=== PATIENT | female | born 1970 | race Asian ===

== ENCOUNTER 2018-03-05 07:45 | Emergency (ER) | payer OTHER ==
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
[2018-03-05 10:03] VITALS: BP 120/70
--- NOTE | 2018-03-05 10:20 | RADIOLOGY REPORT (SQ) ---
EXAM DESCRIPTION: VENOUS UNILATERAL LOWER COMPLETED DATE/TIME: 03/05/2018 10:08 am REASON FOR STUDY: Left lower extremity swelling and pain COMPARISON: None. TECHNIQUE: Dynamic and static dorman scale and color images acquired of the left leg venous system. Se lected spectral images acquired with additional compression and augmentation maneuvers. The contralat eral common femoral vein and saphenofemoral junction were also imaged. Images stored on PACS. LIMITATIONS: None. FINDINGS: LEFT COMMON FEMORAL: Normal phasicity, compression and augmentation. No visualized echogenic material on g ray scale. No defects on color images. FEMORAL: Normal compression and augmentation. No visualized echogenic material on dorman scale. No defe cts on color images. POPLITEAL: Normal compression, augmentation. No visualized echogenic material on dorman scale. No defec ts on color images. CALF VESSELS: Normal compression, augmentation. No visualized echogenic material on dorman scale. No de fects on color images. GSV and SSV: Normal compression, augmentation. No visualized echogenic material on dorman scale. No def ects on color images. ANY DEEP VENOUS INSUFFICIENCY: Not evaluated. ANY EVIDENCE OF POPLITEAL CYST: No. OTHER: No other significant finding. RIGHT COMMON FEMORAL VEIN AND SAPHENOFEMORAL JUNCTION: Normal phasicity, compression and augmentation. No visualized echogenic material on dorman scale. No de fects on color images. IMPRESSION: NO EVIDENCE OF DVT OR SVT IN THE LEFT LEG. TECHNICAL DOCUMENTATION: JOB ID: [id number] [employer]- All Rights Reserved Reading location - IP/workstation name: [email or web address]
== END 2018-03-05 10:04 | disposition home or self-care (01) ==
LOC: ER 07:45
DX: M79.605 Pain in left leg (principal); Z86.718 Personal history of other venous thrombosis and embolism
CPT/HCPCS: 93971; 99283